=== PATIENT | female | born 1960 | race Caucasian/White ===

== ENCOUNTER → 2020-04-01 | Outpatient (CLI) | payer OTHER ==
[2020-04-01 12:09] LABS: HCT 49.6 % (34.0-46.0); HGB 15.7 gm/dL (11.4-16.0); MCH 31.2 pg (25.0-35.0); MCHC 31.7 g/dL (31.0-37.0); MCV 98.6 fL (80.0-100.0); Mean Platelet Volume 7.1; Platelet Count 254 k/uL (150-450); RBC 5.03 m/uL (3.80-5.40); RDW 12.8 % (11.5-15.5); WBC 7.5 k/uL (3.8-10.6)
[2020-04-01 12:13] LABS: Appearance,Urine Clear (Clear); Bilirubin,Urine Negative (Negative); Blood,Urine Negative (Negative); Color,Urine Light Yellow; Glucose,Urine (UA) Negative (Negative); Ketones,Urine Negative (Negative); Leukocyte Esterase,Urine Negative (Negative); Nitrite,Urine Negative (Negative); Protein,Urine Negative (Negative); Specific Gravity,Urine 1.011 (1.001-1.035); Urobilinogen,Urine <2.0 mg/dL (<2.0)
[2020-04-01 12:18] LABS: African American GFR (CKD) >90 (>60 ml/min/1.73 sqM); Anion Gap 10 mmol/L; Blood Urea Nitrogen 13 mg/dL (7-17); Calcium 9.5 mg/dL (8.4-10.2); Carbon Dioxide 26 mmol/L (22-30); Chloride 104 mmol/L (98-107); Glucose 76 mg/dL (74-99); Non-African American GFR(CKD) >90 (>60 ml/min/1.73 sqM); Potassium 4.4 mmol/L (3.5-5.1); Sodium 140 mmol/L (137-145)
[2020-04-01 12:27] LABS: Prothrombin Time 9.9 sec (9.0-12.0)
[2020-04-01 12:32] LABS: Partial Thromboplastin Time 19.1 sec (22.0-30.0)
--- NOTE | 2020-04-01 16:30 | XR ---
EXAMINATION TYPE: XR chest 2V DATE OF EXAM: 04/01/2020 COMPARISON: NONE HISTORY: Z01.818 TECHNIQUE: Frontal and lateral views of the chest are obtained. FINDINGS: There is no focal air space opacity, pleural effusion, or pneumothorax seen. The cardiac silhouette size is within normal limits. Aorta is dense. The osseous structures are intact, there is multilevel thoracic spondylosis. IMPRESSION: No acute cardiopulmonary process.
== END | disposition home or self-care (01) ==
LOC: LABPAT 09:40
PROVIDERS: ATTEND Orthopaedic Surgery Orthopaedic Surgery of the Spine
DX: Z01.818 Encounter for other preprocedural examination (principal); M48.02 Spinal stenosis, cervical region; Z01.812 Encounter for preprocedural laboratory examination
CPT/HCPCS: 71046; 80048; 81003; 85027; 85610; 85730; 87070; 93005

== ENCOUNTER 2020-04-08 07:44 | Inpatient (IN) | payer OTHER ==
[2020-04-03 11:46] VITALS: BMI 33.3
[~2020-04-08 07:44] MED LIST: LIDOCAINE 1% (10MG/ML) FOR IV START INTRADERMA PRN; ONDANSETRON 4 MG/2 ML VIAL IVP ONE; ceFAZolin 1,000 MG in SODIUM CHLORIDE 0.9% IRRIGATIO 1,000 ML IRRIGATION ONE; fentaNYL (PF) 50 MCG/ML 2 ML AMP IV PRN
[2020-04-08 08:48] LABS: Glucose,Whole Blood 85 mg/dL (75-99)
[2020-04-08] MEDS ORDERED: SCOPOLAMINE 1.5MG/72HR PATCH TRANSDERM ONE (08:50)
[2020-04-08] MEDS: LACTATED RINGERS 1,000 ML IV SCH (08:50)
[2020-04-08] MEDS ORDERED: ROCURONIUM 10 MG/ML (10 ML VIAL) IV ONE (09:52)
[2020-04-08] MEDS ORDERED: MIDAZOLAM 2 MG/2 ML VIAL ONE (09:52)
[2020-04-08] MEDS ORDERED: PROPOFOL 10 MG/ML 20 ML VIAL IV ONE (09:52)
[2020-04-08] MEDS ORDERED: SUCCINYLCHOLINE CHLORIDE VIAL 200 MG/10 ML VIAL IV ONE (09:52)
[2020-04-08] MEDS ORDERED: GLYCOPYRROLATE 0.2 MG/ML 2 ML VIAL ONE (09:52)
[2020-04-08] MEDS ORDERED: LIDOCAINE 1% INJ 10MG/ML (20 ML MDV) ONE (09:52)
[2020-04-08] MEDS ORDERED: ePHEDrine SULFATE/0.9% NACL/PF 50 MG/5 ML SYRINGE IV ONE (09:52)
[2020-04-08] MEDS ORDERED: PHENYLEPHRINE-0.9% NACL SYG 1 MG/10 ML SYRINGE ONE (09:52)
[2020-04-08] MEDS ORDERED: NEOSTIGMINE 1 MG/ML 10 ML VIAL ONE (09:52)
[2020-04-08] MEDS ORDERED: fentaNYL (PF) 50 MCG/ML 2 ML AMP ONE (09:52)
[2020-04-08] MEDS ORDERED: LIDOCAINE 0.5%-EPI 1:200,000 50 ML VIAL SQ ONE (10:38)
[2020-04-08] MEDS ORDERED: GELATIN SPONGE,ABSORB (LARGE) 1 EACH SPONGE MISCELLANE ONE (10:56)
[2020-04-08] MEDS ORDERED: THROMBIN (BOVINE) 5,000 UNIT VIAL MISCELLANE ONE (10:57)
[2020-04-08] MEDS ORDERED: LACTATED RINGERS 1,000 ML IV ONE (11:36)
--- NOTE | 2020-04-08 12:33 | FL ---
EXAMINATION TYPE: FL guidance operating room, XR lumbar spine 2 or 3V DATE OF EXAM: 04/08/2020 CLINICAL HISTORY: Low back pain. TECHNIQUE: Fluoroscopy. Lumbar spine 2 or 3 views. COMPARISON: None. FINDINGS: Fluoroscopic guidance was provided during lumbar fusion surgical procedure performed by Dr Dhiraj Baron. A total of 27 seconds of fluoroscopic time was utilized during the procedure and 2 spot shakir ges was acquired. 2 spot intraoperative images obtained show posterior interpedicular rods and screws along with metall ic disc material at L4-L5 level. Satisfactory alignment is seen on intraoperative images obtained. IMPRESSION: As Above.
[2020-04-08] MEDS ORDERED: BENZOCAINE/MENTHOL LOZENG 1 EACH LOZENGE MUCOUS MEM PRN (12:38)
[2020-04-08] MEDS ORDERED: HYDROcodone/APAP 5-325MG 1 EACH TAB PO PRN (12:38)
[2020-04-08] MEDS ORDERED: MAGNESIUM HYDROXIDE 2,400 MG/10 ML CUP PO PRN (12:38)
[2020-04-08] MEDS ORDERED: HYDROmorphone 0.5 MG/0.5 ML SYRINGE IVP PRN (12:38)
--- NOTE | 2020-04-08 12:51 | P.OP ---
Date of Procedure: 04/08/20 Preoperative Diagnosis: Spondylolisthesis L4 5, degenerative disc disease, spinal stenosis L4 5, lower extremity radiculopathy, low back pain Postoperative Diagnosis: Same Anesthesia: GETA Pathology: none sent Condition: stable Disposition: PACU Description of Procedure: DESCRIPTION OF PROCEDURE(S): BRIEF OPERATIVE NOTE Preoperative Diagnosis: Spondylolisthesis , spinal stenosis , lower extremity radiculopathy, lower extremity weakness, neurogenic claudication, low back pain, degenerative disc disease Postoperative Diagnosis: Same Procedure: Laminectomy and decompression L4 [address] navigation aided Minimally invasive Posterior lateral decompression and facet fusion L4 5 Minimally invasive Transforaminal lumbar interbody fusion for a 360 fusion L4 5 Discectomy for decompression L4 5 Placement of interbody graft L4 5 Use of computer navigation for fusion Local autogenous bone grafting Aspiration of bone marrow from the vertebral body pedicle of L4 Use of bone graft extenders Surgeon: Dr. Baron Segregator: Hay CARLISLE who is present throughout the entire the case persistence during positioning, dissection, exposure, visualization, and all crucial elements of the case as well as closure. Anesthesia: General anesthesia Estimated blood loss: Approximately 150 mL Complications: None apparent Components implanted: K2M minimally invasive Shaw pedicle screw system withscrews measuring 6.5 mm in diameter to rods one [place] interbody cage with 10 mL of osteo amp bio4 bone graft substitute and 30 mL of the BX bone fibers to supplement the local autogenous bone graft and bone marrow aspirate Disposition: To recovery room in good stable condition. OPERATIVE INDICATIONS The patient has had severe issues at their lower extremity in her lower back over the past several years with significant worsening over the past several months. Over the past few months the patient had pain at her back and her right lower extremity. The patient is having severe radicular symptoms at her right lower extremity with weakness. The patient is having significant pain in her back. They are unable to obtain any comfort. We did aggressive conservative treatment with medications therapy and interventional pain management however she was not having any relief. The patient also showed evidence of a listhesis with some dynamic instability at L4 5 with significant disc degeneration I correlated well with her pain. The patient has been through conservative treatment. We discussed various treatment options including surgery, and the patient wishes to proceed with surgery We discussed the risk, patient's alternatives and benefits of surgery including but not limited to, risk of bleeding risk of infection, risk of need for further surgery, risk of decreased, loss of motion, muscle function, malunion nonunion, hardware failure, nerve damage, paralysis, heart attack, blindness and . They understood issues with the current pandemic and the possibility of exposure. OPERATIVE SUMMARY After discussing all the risks, patient alternatives and benefits at length, the patient elected to proceed with surgical intervention, signed informed consent, and presented for their procedure. The patient was seen and examined in the preoperative holding area and the surgical site was marked. The patient was given antibiotics and brought to the operating room. The patient was sedated and intubated by anesthesia in standard fashion. The patient was positioned on to the operating room table in a prone position on the appropriate frame which was well-padded and well molded. We were careful to pad any bony prominences and pressure points. We were careful to maintain the patient's cervical spine and good neutral alignment and position throughout. The patient was prepped and draped in a normal standard fashion. An appropriate timeout and keystone protocol performed. We were able to proceed with the surgery. The local wound area was infiltrated with local anesthetic. Over the right iliac crest I was able to make small stab incisions and establish a guidepin screw fixation to the iliac crest 2. I was able place the computer referencing device over the guidepins to establish an appropriate reference point for the [employer] CT navigation. We then were able to place patient in an appropriate drape and do a navigation spin for visualization and 3-D reconstruction of the lumbar spine. I was able utilize C-arm guidance and navigation to establish appropriate position over the pedicles bilaterally at the appropriate levels . With the appropriate levels confirmed was able to make small stab incisions over the appropriate pedicle sites bilaterally. Utilizing the computer navigation device I was able to establish bony landmarks at the right iliac crest for a bony reference point for the navigation device. I was able to establish a Jamshidi needle over the lateral aspect of the pedicle and advanced the trocar into the pedicle being careful not to breech superiorly inferiorly medially or laterally using computer navigation device. Position was confirmed regularly with AP and lateral images on C-arm and with the computer navigation device at the appropriate levels bilaterally. I was able to establish the trocar into the pedicle appropriately into the posterior aspect of the vertebral body bilaterally at the appropriate levels of L4 5 bilaterally. This was done at each of the pedicle positions and each of the vertebrae. At the superior vertebrae I was able to take approximately 25 mL of bone aspiration for use later in the case to supplement the allograft and autograft bone. I was able place the guidewire into the trocar and into the vertebral body appropriately under C-arm guidance. Dissection was taken down over the wire to the appropriate starting position for the screw placed. The appropriate length screw was chosen, threaded over the guidewire and screwed appropriately into the pedicle and vertebral body under C-arm guidance in excellent alignment and position with good bony purchase. This is done at each of the screw sites at the appropriate levels at L4 and 5.. With the screws intact I extended the incision to connect the screw hole sites on the most symptomatic side on the right at L4 5. I dissected down to establish access over the pars and lamina to the base of the spinous process. I was able to expose the facet joint. The capsule the facet was taken down and showed some facet arthrosis at the joint. I was able to use a combination of curettes and Kerrison rongeurs and a high-speed drill to take down the facet joint and do a facetectomy. I was able get excellent foraminal decompression and central decompression with undermining across midline to perform a laminectomy centrally and contralaterally. As able get good central decompression. The ligamentum flavum was taken down to further decompress centrally and at bilateral neural foramen. I was able to expose the disc space and visualize the traversing nerve root. Note was made of some disc protrusion and disc herniation that was abutting the traversing nerve root at the level causing further compression of the nerve root. I was able to establish a annulotomy at the appropriate level protecting soft tissue and neural structures. Note was made of some disc desiccation at the disc. I performed a complete discectomy with accommodation of curettes and rasps and scrapers. I was able get good endplate preparation at the disc space. I sized for the appropriate size interbody spacer protecting the soft tissue and neural structures. The wound was copiously irrigated and suctioned dry. There is no evidence of any dural tear or leak. I was able to pack the disc space with local autogenous bone graft as well as a small amount of bone graft which was also placed into the interbody cage itself. Protecting the soft tissue structures and neural structures I was able place the interbody cage in good alignment and good position with good fit and fill at the interbody space. Position was confirmed with C-arm guidance. Good hemostasis maintained. There is no evidence of any dural tear or leak. The wound was irrigated and suctioned dry. With the hardware intact, intraoperative C-arm imaging was again taken which showed good alignment and position of the hardware at the appropriate levels. We were then able to measure, contour and place the rods and appropriate hardware bilaterally. I was able to place capcrews, tighten them down, and torque them with the torque screwdriver appropriately. With this intact I was able to place the local autogenous bone graft with additional bone graft enhancer as necessary into the posterior lateral gutters over the decorticated transverse processes and facet joints on the contralateral side. The remainder of the bone graft was placed over the facet joint on the contralateral side after taking down the facet joint capsule. With the bone graft intact, a stable construct, and good decompression at the appropriate levels, we were able to proceed with closure. Good hemostasis was maintained. There is no evidence of dural tear or leak. The fascia was closed for a watertight closure. he subcuticular tissue was closed with absorbable suture. The wound was cleaned and dried and dressed with the appropriate dressing. The drapes were broken down. The patient was gently rolled back onto their hospital bed being careful to maintain their cervical spine and good neutral alignment and position. They were woken up by anesthesia, extubated, and brought to the recovery room in good stable condition. The patient will be admitted to the hospital for appropriate postoperative care, medical management and monitoring. We will continue to follow them closely about the postoperative course.
[2020-04-08] MEDS ORDERED: HYDROmorphone 1 MG/ML 1 ML SYRINGE IVP ONE (13:06)
[2020-04-08] MEDS: SODIUM CHLORIDE 0.9% 1,000 ML IV SCH (15:06)
[2020-04-08] MEDS: HYDROmorphone 1 MG/ML 1 ML SYRINGE IVP PRN ×2 (17:44→21:45)
[2020-04-08] MEDS: ONDANSETRON 4 MG/2 ML VIAL IVP PRN (18:03)
--- NOTE | 2020-04-08 23:13 | P.CONS ---
History of Present Illness - Reason for Consult Consult date: 04/08/20 Medical management Requesting physician: Vera Baron - Chief Complaint Lumbar surgery - History of Present Illness History of presenting complaint: This is a pleasant 59-year-old patient of Dr. Boateng. Chronic stable medical conditions include asthma, GERD, irritable bowel syndrome, lactose intolerance, kidney stones, anxiety, osteoarthritis. Patient's had chronic low back pain progressive over years. Has continued to get worse. Failed conservative management. Pain radiates down the leg. Patient underwent laminectomy decompression of L4-L5 area. And discectomy. Postprocedure laying in bed. Pain is controlled. No nausea vomiting. Patient has no underlying bowel or urine symptoms. Pugh catheter. Review of systems: GEN.: Tired EYES: None HEENT: None NECK: None RESPIRATORY: None CARDIOVASCULAR: None GASTROINTESTINAL: None GENITOURINARY: None MUSCULOSKELETAL: [As above and other joint pains LYMPHATICS: None HEMATOLOGICAL: None PSYCHIATRY: None NEUROLOGICAL: Patient had referred pain down the legs preoperatively Past medical history to include: Asthma, GERD, irritable bowel syndrome, lactose intolerance, kidney stones, anxiety, osteoarthritis Social history: Does not smoke or drink alcohol. . Physical examination: VITAL SIGNS: 97.5, 91, 20, 150/39, 96% room air GENERAL: BMI 32.5, laying in bed, awake. EYES: Pupils equal. Conjunctiva normal. HEENT: External appearance of nose and ears normal, oral cavity grossly normal. NECK: JVD not raised; masses not palpable. HEART: First and second heart sounds are normal; no edema. LUNGS: Respiratory rate normal; clear to auscultation. ABDOMEN: Soft, nontender, liver spleen not palpable, no masses palpable. PSYCH: Alert and oriented x3; mood and affect normal Muscular skeletal: Dressing over the surgical site. NEUROLOGICAL: Cranial nerves grossly intact; no facial asymmetry, power and sensation grossly intact. LYMPHATICS: No lymph nodes palpable in the axilla and neck INVESTIGATIONS, reviewed in the clinical context: From March 26 11/07/2019: White count 7.5 hemoglobin 15.7 platelets 254 potassium 4.4 creatinine 0.65 Assessment: -L4-L5 spondylolisthesis, DJD, spinal stenosis at L4-L5 with lower extremity radiculopathy followed by laminectomy decompression and discectomy and placement of interbody graft. -Intermittent asthma -GERD -Irritable bowel syndrome -Chronic lactose intolerance -Anxiety not otherwise specified -Primary osteoarthritis -Hypothyroid Plan: Home medications resumed. Has cut Venodyne boots in place. Pain control in place. Diet as tolerated. Care was discussed with the patient question also. Thank you Dr. Chan Past Medical History Past Medical History: Asthma, GERD/Reflux, Musculoskeletal Disorder, Osteoarthritis (OA), Thyroid Disorder Additional Past Medical History / Comment(s): IBS, frequent diarrhea, seasonal allergies, lactose intolerance, hypoglycemia, hx. heart murmur, anemia, kidney stones, past hx. elevated liver enzymes, gout, back pain that goes down both inner & outer on right leg, blanca pain on inner legs-worse on right History of Any Multi-Drug Resistant Organisms: None Reported Past Surgical History: Cholecystectomy, Hysterectomy, Orthopedic Surgery, Uterine Ablation Additional Past Surgical History / Comment(s): right rotator cuff repair December, blanca CTS, D & C's, epidural pain procedures Past Anesthesia/Blood Transfusion Reactions: Motion Sickness, Postoperative Nausea & Vomiting (PONV) Additional Past Anesthesia/Blood Transfusion Reaction / Comm: wakes up w/headaches after anesthesia, no problem w/blood transfusion in past Past Psychological History: Anxiety Smoking Status: Never smoker Past Alcohol Use History: None Reported Past Drug Use History: None Reported - Past Family History Father Family Medical History: Cancer Additional Family Medical History / Comment(s): pancreatic Sister(s) Family Medical History: Cancer Medications and Allergies Home Medications Medication Instructions Recorded Confirmed Type Acetaminophen Tab [Tylenol] 650 mg PO Q4H PRN 04/03/20 04/03/20 History Calcium Carb/Magnesium Hydrox 1 each PO DIRECTED PRN 04/03/20 04/03/20 History [Rolaids Chewable Tablet] Cyanocobalamin (Vitamin B-12) 1,000 mcg PO DAILY 04/03/20 04/03/20 History [Vitamin B-12] Ibuprofen [Motrin Ib] 200 mg PO Q6H PRN 04/03/20 04/03/20 History Levothyroxine Sodium [Synthroid] 88 mcg PO DAILY 04/03/20 04/03/20 History Loperamide [Imodium] 2 mg PO QID PRN 04/03/20 04/03/20 History Multivitamins, Thera [Multivitamin 1 tab PO DAILY 04/03/20 04/03/20 History (formulary)] Omeprazole Magnesium [PriLOSEC OTC] 20 mg PO BID PRN 04/03/20 04/08/20 History diphenhydrAMINE [Benadryl] 12.5 mg PO BID PRN 04/03/20 04/03/20 History Albuterol Nebulized (Conc) INHALATION DIRECTED PRN 04/08/20 History [Ventolin Nebulized (Conc)] Allergies Allergy/AdvReac Type Severity Reaction Status Date / Time povidone-iodine Allergy Rash/Hives Verified 04/03/20 10:47 [From Betadine] soap [From Betadine] Allergy Rash/Hives Verified 04/03/20 10:47 morphine AdvReac Nausea & Verified 04/03/20 10:47 Vomiting Sulfa (Sulfonamide AdvReac GI Verified 04/03/20 10:47 Antibiotics) upset,diarrhea narcotics AdvReac IBS flare Uncoded 04/03/20 10:49 up steroids AdvReac headaches,GI Uncoded 04/03/20 10:47 upset Physical Exam Vitals: Vital Signs Temp Pulse Pulse Pulse Pulse Resp BP 04/08/20 20:41 97.5 F L 91 20 04/08/20 16:48 72 04/08/20 16:33 74 04/08/20 16:18 74 04/08/20 16:03 74 04/08/20 15:48 68 04/08/20 15:33 68 04/08/20 15:18 70 04/08/20 14:48 66 04/08/20 14:33 69 04/08/20 14:20 71 04/08/20 13:42 67 16 04/08/20 13:27 67 16 04/08/20 13:12 70 16 04/08/20 12:57 79 16 04/08/20 12:42 97.2 F L 98 16 04/08/20 08:18 76 20 135/98 04/08/20 08:14 97.2 F L BP Pulse Ox 04/08/20 20:41 150/79 96 04/08/20 16:48 135/81 97 04/08/20 16:33 133/82 96 04/08/20 16:18 143/71 99 04/08/20 16:03 157/70 96 04/08/20 15:48 116/78 95 04/08/20 15:33 113/77 95 04/08/20 15:18 122/76 97 04/08/20 14:48 136/76 96 04/08/20 14:33 137/77 96 04/08/20 14:20 116/59 96 04/08/20 13:42 123/58 93 L 04/08/20 13:27 126/60 93 L 04/08/20 13:12 154/74 92 L 04/08/20 12:57 143/68 98 04/08/20 12:42 150/73 98 04/08/20 08:18 98 04/08/20 08:14 Intake and Output 04/08/20 04/08/20 04/09/20 14:59 22:59 06:59 Intake Total 1651 225 Output Total 370 300 Balance 1281 -75 Intake: IV 1651 Intake, IV Titration 225 Amount Sodium Chloride 0.9% 1, 225 000 ml @ 75 mls/hr IV . [id number] [facility] Rx#:[id number] Output: Urine 220 300 Estimated Blood Loss 150 Other: Voiding Method Indwelling Catheter Weight 86 kg
[2020-04-09] MEDS: HYDROmorphone 1 MG/ML 1 ML SYRINGE IVP PRN ×4 (01:27→19:18)
[2020-04-09] MEDS: SODIUM CHLORIDE 0.9% 1,000 ML IV SCH ×2 (05:37→15:38)
[2020-04-09] MEDS ORDERED: diphenhydrAMINE ELIXIR 25 MG/10 ML CUP PO PRN (07:11)
[2020-04-09] MEDS ORDERED: LOPERAMIDE 2 MG CAP PO PRN (07:11)
[2020-04-09] MEDS ORDERED: PANTOPRAZOLE 40 MG TABLET PO PRN (07:11)
[2020-04-09] MEDS ORDERED: CALCIUM CARB PO PRN (07:11)
[2020-04-09] MEDS ORDERED: [UNRECOGNIZED DRUG - OTHER] PO PRN (07:11)
[2020-04-09] MEDS ORDERED: MAGNESIUM HYDROX PO PRN (07:11)
[2020-04-09] MEDS: LEVOTHYROXINE 88 MCG TAB PO SCH (07:21)
[2020-04-09] MEDS: ONDANSETRON 4 MG/2 ML VIAL IVP PRN (07:22)
[2020-04-09 07:55] LABS: Basophils % (A) 0 %; Eosinophils # (A) 0.1 k/uL (0-0.7); Eosinophils % (A) 1 %; HCT 39.3 % (34.0-46.0); HGB 12.8 gm/dL (11.4-16.0); Lymphocytes # (A) 1.5 k/uL (1.0-4.8); Lymphocytes % (A) 14 %; MCHC 32.5 g/dL (31.0-37.0); MCV 98.5 fL (80.0-100.0); Mean Platelet Volume 8.8; Monocytes # (A) 0.9 k/uL (0-1.0); Monocytes % (A) 8 %; Neutrophils # (A) 8.5 k/uL (1.3-7.7); Neutrophils % (A) 76 %; Platelet Count 186 k/uL (150-450); RDW 12.9 % (11.5-15.5); WBC 11.2 k/uL (3.8-10.6)
--- NOTE | 2020-04-09 08:53 | P.PN ---
Progress Note - Text Progress Note Date: 04/09/20 Orthopedic Spine History of present illness: Patient is a pleasant 59-year-old who is seen and examined at the bedside following posterior lateral decompression and fusion performed yesterday. Patient states they are doing ok postsurgically. She is not experiencing any lower extremity weakness or radiculopathy bilaterally. Her pain is most significant at her lumbar spine. Currently does not complain of nausea, vomiting, fever, or chills. Patient states pain has been adequately controlled. Patient is eating without difficulty but does not have much of an appetite. Her Pugh catheter remains intact. She has not been out of bed postoperatively but plans to work with physical therapy today. Physical Exam Lumbar Fusion: Status post surgical day number 1 Patient is awake, alert, and oriented 3 Vital signs stable Good chest excursion with deep inspiration and expiration Dorsiflexion, plantarflexion, and extensor hallucis longus positive sustained bilaterally No signs or symptoms of DVT; no calf pain; pneumatic cuffs intact bilateral lower extremities Dressing is dry and intact with a spot of dried blood over the left incision site; no erythema, purulence, or signs of infection Hemovac drain well secure Neurovascularly intact bilaterally lower extremities Assessment: L4-5 minimally invasive posterior lateral decompression and fusion with transforaminal lumbar interbody fusion Low back pain Lumbar spinal stenosis with neurogenic claudication Lower extremity weakness with radiculopathy Hypertension Hypothyroidism Plan: 1. Ambulate as tolerated; work with Physical Therapy to increase mobilization 2. Continue pain control with IV and oral medications 3. Dressings to remain intact; she may shower with dressing is intact 4. Medical management can continue to manage patient for patient's other medical issues 5. We will continue to follow the patient closely 6. Patient can follow-up with Hay Shah PA-C or Dr. Wyatt Baron at [facility] in 2-3 weeks following discharge
[2020-04-09 09:09] LABS: African American GFR (CKD) 108.4 (60.0-200.0); Anion Gap 10.5 mmol/L (4.00-12.00); BUN/Creat Ratio 11.43 Ratio (12.00-20.00); Calcium 8.4 mg/dL (8.7-10.3); Carbon Dioxide 22.5 mmol/L (21.6-31.8); Non-African American GFR(CKD) 93.5 (60.0-200.0); Potassium 4.7 mmol/L (3.5-5.5)
[2020-04-09] MEDS: LACTATED RINGERS 1,000 ML IV SCH (09:30)
[2020-04-09] MEDS: SENNOSIDES-DOCUSATE SODIUM 1 EACH TAB PO SCH (09:36)
[2020-04-09] MEDS: MULTIVITAMINS, THERA 1 EACH TAB PO SCH (09:36)
[2020-04-09] MEDS: CYANOCOBALAMIN 500 MCG TAB PO SCH (09:36)
--- NOTE | 2020-04-09 16:38 | P.PN ---
Progress Note - Text Progress Note Date: 04/09/20 - Chief Complaint Lumbar surgery - History of Present Illness History of presenting complaint: This is a pleasant 59-year-old patient of Dr. Boateng. Chronic stable medical conditions include asthma, GERD, irritable bowel syndrome, lactose intolerance, kidney stones, anxiety, osteoarthritis. Patient's had chronic low back pain progressive over years. Has continued to get worse. Failed conservative management. Pain radiates down the leg. Patient underwent laminectomy decompression of L4-L5 area. And discectomy. Postprocedure laying in bed. Pain is controlled. No nausea vomiting. Patient has no underlying bowel or urine symptoms. Pugh catheter. Today-did walk to the bathroom and back to the chair. Activity increase her lower back pain. Did tolerate some diet. No nausea vomiting. Review of systems: Was done for constitutional, cardiovascular, GI, pulmonary. relevant finding as above Active Medications Acetaminophen (Acetaminophen Tab 325 Mg Tab) 650 mg PO Q4H PRN PRN Reason: Pain Hydrocodone Bitart/Acetaminophen (Hydrocodone/Apap 5-325mg 1 Each Tab) 1 each PO Q4HR PRN PRN Reason: Moderate Pain Benzocaine/Menthol (Benzocaine/Menthol Lozeng 1 Each Lozenge) 1 each MUCOUS MEM Q4HR PRN PRN Reason: Sore Throat Cyanocobalamin (Cyanocobalamin 500 Mcg Tab) 1,000 mcg PO DAILY [facility] Last Admin: 04/09/20 09:36 Dose: 1,000 mcg Documented by: Diphenhydramine HCl (Diphenhydramine Elixir 25 Mg/10 Ml Cup) 12.5 mg PO BID PRN PRN Reason: allergies Hydromorphone HCl (Hydromorphone 0.5 Mg/0.5 Ml Syringe) 0.5 mg IVP Q4HR PRN PRN Reason: Pain Hydromorphone HCl (Hydromorphone 1 Mg/Ml 1 Ml Syringe) 1 mg IVP Q4HR PRN PRN Reason: Pain Last Admin: 04/09/20 13:26 Dose: 1 mg Documented by: Lactated Ringer's (Lactated Ringers) 1,000 mls @ 20 mls/hr IV .Q24H [facility] Last Admin: 04/09/20 09:30 Dose: Not Given Documented by: Sodium Chloride (Saline 0.9%) 1,000 mls @ 75 mls/hr IV .[id number] [facility] Last Admin: 04/09/20 15:38 Dose: Not Given Documented by: Levothyroxine Sodium (Levothyroxine 88 Mcg Tab) 88 mcg PO DAILY@0630 [facility] Last Admin: 04/09/20 07:21 Dose: 88 mcg Documented by: Lidocaine HCl (Lidocaine 1% (10mg/Ml) For Iv Start) 0.1 ml INTRADERMA PER PROTOCOL PRN PRN Reason: IV Start Last Admin: 04/08/20 08:50 Dose: 0.1 ml Documented by: Loperamide HCl (Loperamide 2 Mg Cap) 2 mg PO QID PRN PRN Reason: Diarrhea Magnesium Hydroxide (Magnesium Hydroxide 2,400 Mg/10 Ml Cup) 2,400 mg PO DAILY PRN PRN Reason: Constipation Multivitamins (Multivitamins, Thera 1 Each Tab) 1 each PO DAILY [facility] Last Admin: 04/09/20 09:36 Dose: 1 each Documented by: Ondansetron HCl (Ondansetron 4 Mg/2 Ml Vial) 4 mg IVP Q6HR PRN PRN Reason: Nausea Last Admin: 04/09/20 07:22 Dose: 4 mg Documented by: Pantoprazole Sodium (Pantoprazole 40 Mg Tablet) 40 mg PO DAILY PRN PRN Reason: Heartburn Senna/Docusate Sodium (Sennosides-Docusate Sodium 1 Each Tab) 1 each PO DAILY [facility] Last Admin: 04/09/20 09:36 Dose: 1 each Documented by: Physical examination: VITAL SIGNS: 98.2, 83, 16, 117/69, 94% room air GENERAL: Sitting up in a chair, awake EYES: Pupils equal. Conjunctiva normal. NECK: JVD not raised; masses not palpable. HEART: First and second heart sounds are normal; no edema. LUNGS: Respiratory rate normal; clear to auscultation. ABDOMEN: Soft, nontender, liver spleen not palpable, no masses palpable. PSYCH: Alert and oriented x3; mood and affect normal Muscular skeletal: Dressing over the surgical site. NEUROLOGICAL: Cranial nerves grossly intact; no facial asymmetry, power and sensation grossly intact. INVESTIGATIONS, reviewed in the clinical context: White count 11.2 hemoglobin 12.8 potassium 4.7 creatinine 0.7 From March 26 11/07/2019: White count 7.5 hemoglobin 15.7 platelets 254 potassium 4.4 creatinine 0.65 Assessment: -L4-L5 spondylolisthesis, DJD, spinal stenosis at L4-L5 with lower extremity radiculopathy followed by laminectomy decompression and discectomy and placement of interbody graft. -Intermittent asthma -GERD -Irritable bowel syndrome -Chronic lactose intolerance -Anxiety not otherwise specified -Primary osteoarthritis -Hypothyroid Plan: Continue current medication treatment plan. Discussed with the patient. Increase activity as tolerated. Thank you Dr. Baron
[2020-04-09] MEDS: ACETAMINOPHEN TAB 325 MG TAB PO PRN (20:28)
[2020-04-10] MEDS: HYDROmorphone 1 MG/ML 1 ML SYRINGE IVP PRN ×2 (01:19→08:29)
[2020-04-10] MEDS: LACTATED RINGERS 1,000 ML IV SCH (06:01)
[2020-04-10] MEDS: LEVOTHYROXINE 88 MCG TAB PO SCH (06:02)
[2020-04-10] MEDS: SODIUM CHLORIDE 0.9% 1,000 ML IV SCH ×2 (06:03→19:29)
[2020-04-10] MEDS: CYANOCOBALAMIN 500 MCG TAB PO SCH (08:30)
[2020-04-10] MEDS: MULTIVITAMINS, THERA 1 EACH TAB PO SCH (08:30)
[2020-04-10] MEDS: SENNOSIDES-DOCUSATE SODIUM 1 EACH TAB PO SCH (08:30)
[2020-04-10 12:00] LABS: Basophils % (A) 0 %; Eosinophils # (A) 0.1 k/uL (0-0.7); Eosinophils % (A) 1 %; HCT 39.9 % (34.0-46.0); HGB 12.7 gm/dL (11.4-16.0); Lymphocytes # (A) 1.3 k/uL (1.0-4.8); Lymphocytes % (A) 12 %; MCHC 31.8 g/dL (31.0-37.0); MCV 100.5 fL (80.0-100.0); Mean Platelet Volume 6.9; Monocytes # (A) 0.7 k/uL (0-1.0); Monocytes % (A) 6 %; Neutrophils # (A) 8.4 k/uL (1.3-7.7); Neutrophils % (A) 79 %; Platelet Count 189 k/uL (150-450); RBC 3.97 m/uL (3.80-5.40); RDW 12.8 % (11.5-15.5); WBC 10.6 k/uL (3.8-10.6)
[2020-04-10] MEDS: ACETAMINOPHEN TAB 325 MG TAB PO PRN ×2 (15:47→19:58)
--- NOTE | 2020-04-10 16:16 | P.PN ---
Progress Note - Text Progress Note Date: 04/10/20 Orthopedic Spine History of present illness: Patient is a pleasant 59-year-old who is seen and examined at the bedside following posterior lateral decompression and fusion performed yesterday. Patient states they are doing ok postsurgically. He is currently sitting in a bedside chair. She has been able to perform some ambulation with physical therapy. She does continue to have pain at the surgical sites of her lumbar spine. She is not experiencing any lower extremity weakness bilaterally. She states today she is experiencing some pain from the posterior knee through the calf to the ankle bilaterally greater on the right than the left. Her pain is most significant at her lumbar spine. Currently does not complain of nausea, vomiting, fever, or chills. Patient states pain has been adequately controlled. She has not been taking any narcotic oral medications. She does continue with Dilaudid IV. Patient is eating without difficulty but does not have much of an appetite. Physical Exam Lumbar Fusion: Status post surgical day number 2 Patient is awake, alert, and oriented 3 Vital signs stable Good chest excursion with deep inspiration and expiration Dorsiflexion, plantarflexion, and extensor hallucis longus positive sustained bilaterally No signs or symptoms of DVT; no calf pain; pneumatic cuffs intact bilateral lower extremities No significant pain on palpation of the calves bilaterally; negative Sylvia's sign bilaterally Dressing is dry and intact with a spot of dried blood over the left incision site; no erythema, purulence, or signs of infection Hemovac drain well secure Neurovascularly intact bilaterally lower extremities Assessment: L4-5 minimally invasive posterior lateral decompression and fusion with transforaminal lumbar interbody fusion Low back pain Lumbar spinal stenosis with neurogenic claudication Lower extremity weakness with radiculopathy Hypertension Hypothyroidism Plan: 1. Ambulate as tolerated; work with Physical Therapy to increase mobilization 2. Continue pain control with IV and oral medications; we discussed we will start to wean off of IV Dilaudid and will try to control her pain with Tylenol 650 mg 1 tablet every 4 hours as needed for pain. Patient has significant difficulty with Tylenol #3, Ultram, and Orient. We'll plan to avoid these medications. 3. Dressings to remain intact; she may shower with dressing is intact 4. Medical management can continue to manage patient for patient's other medical issues 5. We will continue to follow the patient closely 6. Patient can follow-up with Hay Shah PA-C or Dr. Wyatt Baron at [facility] in 2-3 weeks following discharge
[2020-04-10 20:05] VITALS: RESP 18
--- NOTE | 2020-04-10 23:49 | P.PN ---
Progress Note - Text Progress Note Date: 04/10/20 - Chief Complaint Lumbar surgery - History of Present Illness History of presenting complaint: This is a pleasant 59-year-old patient of Dr. Boateng. Chronic stable medical conditions include asthma, GERD, irritable bowel syndrome, lactose intolerance, kidney stones, anxiety, osteoarthritis. Patient's had chronic low back pain progressive over years. Has continued to get worse. Failed conservative management. Pain radiates down the leg. Patient underwent laminectomy decompression of L4-L5 area. And discectomy. Postprocedure laying in bed. Pain is controlled. No nausea vomiting. Patient has no underlying bowel or urine symptoms. Pugh catheter. Today-activity improving. Oral intake improving. Pain still present. Does radiate down the right leg. Up in a chair. Review of systems: Was done for constitutional, cardiovascular, GI, pulmonary. relevant finding as above Active Medications Acetaminophen (Acetaminophen Tab 325 Mg Tab) 650 mg PO Q4H PRN PRN Reason: Pain Last Admin: 04/10/20 19:58 Dose: 650 mg Documented by: Hydrocodone Bitart/Acetaminophen (Hydrocodone/Apap 5-325mg 1 Each Tab) 1 each PO Q4HR PRN PRN Reason: Moderate Pain Benzocaine/Menthol (Benzocaine/Menthol Lozeng 1 Each Lozenge) 1 each MUCOUS MEM Q4HR PRN PRN Reason: Sore Throat Cyanocobalamin (Cyanocobalamin 500 Mcg Tab) 1,000 mcg PO DAILY [facility] Last Admin: 04/10/20 08:30 Dose: Not Given Documented by: Diphenhydramine HCl (Diphenhydramine Elixir 25 Mg/10 Ml Cup) 12.5 mg PO BID PRN PRN Reason: allergies Hydromorphone HCl (Hydromorphone 0.5 Mg/0.5 Ml Syringe) 0.5 mg IVP Q4HR PRN PRN Reason: Pain Hydromorphone HCl (Hydromorphone 1 Mg/Ml 1 Ml Syringe) 1 mg IVP Q4HR PRN PRN Reason: Pain Last Admin: 04/10/20 08:29 Dose: 1 mg Documented by: Lactated Ringer's (Lactated Ringers) 1,000 mls @ 20 mls/hr IV .Q24H [facility] Last Admin: 04/10/20 06:01 Dose: Not Given Documented by: Sodium Chloride (Saline 0.9%) 1,000 mls @ 75 mls/hr IV .[id number] [facility] Last Admin: 04/10/20 19:29 Dose: Not Given Documented by: Levothyroxine Sodium (Levothyroxine 88 Mcg Tab) 88 mcg PO DAILY@0630 [facility] Last Admin: 04/10/20 06:02 Dose: 88 mcg Documented by: Lidocaine HCl (Lidocaine 1% (10mg/Ml) For Iv Start) 0.1 ml INTRADERMA PER PROTOCOL PRN PRN Reason: IV Start Last Admin: 04/08/20 08:50 Dose: 0.1 ml Documented by: Loperamide HCl (Loperamide 2 Mg Cap) 2 mg PO QID PRN PRN Reason: Diarrhea Magnesium Hydroxide (Magnesium Hydroxide 2,400 Mg/10 Ml Cup) 2,400 mg PO DAILY PRN PRN Reason: Constipation Multivitamins (Multivitamins, Thera 1 Each Tab) 1 each PO DAILY [facility] Last Admin: 04/10/20 08:30 Dose: Not Given Documented by: Ondansetron HCl (Ondansetron 4 Mg/2 Ml Vial) 4 mg IVP Q6HR PRN PRN Reason: Nausea Last Admin: 04/09/20 07:22 Dose: 4 mg Documented by: Pantoprazole Sodium (Pantoprazole 40 Mg Tablet) 40 mg PO DAILY PRN PRN Reason: Heartburn Senna/Docusate Sodium (Sennosides-Docusate Sodium 1 Each Tab) 1 each PO DAILY [facility] Last Admin: 04/10/20 08:30 Dose: 1 each Documented by: Physical examination: VITAL SIGNS: 98.9, 89, 18, 112 x 73, 96% room air GENERAL: Sitting up in a chair, awake EYES: Pupils equal. Conjunctiva normal. NECK: JVD not raised; masses not palpable. HEART: First and second heart sounds are normal; no edema. LUNGS: Respiratory rate normal; clear to auscultation. ABDOMEN: Soft, nontender, liver spleen not palpable, no masses palpable. PSYCH: Alert and oriented x3; mood and affect normal Muscular skeletal: Dressing over the surgical site. INVESTIGATIONS, reviewed in the clinical context: White count 10.6 hemoglobin 12.7 Previous testing White count 11.2 hemoglobin 12.8 potassium 4.7 creatinine 0.7 From March 26 11/07/2019: White count 7.5 hemoglobin 15.7 platelets 254 potassium 4.4 creatinine 0.65 Assessment: -L4-L5 spondylolisthesis, DJD, spinal stenosis at L4-L5 with lower extremity radiculopathy followed by laminectomy decompression and discectomy and placement of interbody graft. -Intermittent asthma -GERD -Irritable bowel syndrome -Chronic lactose intolerance -Anxiety not otherwise specified -Primary osteoarthritis -Hypothyroid Plan: Patient encouraged to increase activity as tolerated. Other medications to con tinue. Thank you Dr. Baron
[2020-04-11] MEDS: ACETAMINOPHEN TAB 325 MG TAB PO PRN ×2 (02:41→08:07)
[2020-04-11] MEDS: LACTATED RINGERS 1,000 ML IV SCH (06:27)
[2020-04-11] MEDS: LEVOTHYROXINE 88 MCG TAB PO SCH (06:28)
[2020-04-11] MEDS: SODIUM CHLORIDE 0.9% 1,000 ML IV SCH (07:52)
[2020-04-11 08:43] VITALS: BP 123/82; PULSE 72; TEMP 98.5
[2020-04-11] MEDS: CYANOCOBALAMIN 500 MCG TAB PO SCH (09:05)
[2020-04-11] MEDS: MULTIVITAMINS, THERA 1 EACH TAB PO SCH (09:06)
[2020-04-11] MEDS: SENNOSIDES-DOCUSATE SODIUM 1 EACH TAB PO SCH (09:06)
--- NOTE | 2020-04-11 10:00 | P.DS ---
Providers Date of admission: 04/10/20 13:14 Attending physician: Vera Baron Consults: 04/08/20 12:38 Consult Physician Routine Consulting Provider: Saeid Brennan Consult Reason/Comments: medical management Do you want consulting provider notified?: Yes Primary care physician: [facility] Course: The patient presented on the day of admission as per their operative note. She is undergone minimally invasive decompression and fusion at her lumbar spine and is making progress. She essentially refuses to take oral pain pills and has just been taking Tylenol. She has also been taking some IV Dilaudid which does not give her any significant problems. She has been able to wean down off of the IV medications and is taking oral Tylenol. She is mobile around her room and voiding freely. She had a bowel movement this morning. She's walking independently with her walker Physical Exam The incision site is clean dry and intact. There is no erythema no drainage. There is no purulence no evidence of infection. Abdomen soft and nontender. Chest has good excursion with deep inspiration and expiration. The patient has active and passive range of motion intact at the upper and lower extremities. There is no acute change in neurologic status. She has sustained a slash and plantar flexion and EHL intact. Calves and thighs are soft and nontender. Hospital Course Postoperative day #3 status post minimally invasive decompression and fusion her spine for her spinal stenosis with spondylolisthesis and lower extremity radiculopathy improving appropriately. The patient has been making good progress postoperatively. They have completed the prophylactic antibiotics without any signs or symptoms of infection. The patient has been able to advance their diet, and is tolerating diet adequately. The pain was initially controlled with IV medications and is now controlled appropriately with just Tylenol oral medications. She is declining taking anything stronger than the oral Tylenol. The patient has been able to increase their mobilization. I think that she needs a walker for home use. The patient has progressed appropriately. I think they are in good stable condi tion for discharge today. They will be sent home with appropriate prescriptions. I answered their questions to the best of my ability in a language that they can understand and they are agreeable with the plan. They will follow up as directed in approximately 2 weeks or sooner if she is having problems. Patient Condition at Discharge: Good Plan - Discharge Summary Discharge Rx Participant: No New Discharge Prescriptions: New HYDROcodone/APAP 5-325MG [[place] 5] 1 each PO Q6HR PRN #28 tab PRN Reason: Pain No Action Ibuprofen [Motrin Ib] 200 mg PO Q6H PRN PRN Reason: Pain Acetaminophen Tab [Tylenol] 650 mg PO Q4H PRN PRN Reason: Pain diphenhydrAMINE [Benadryl] 12.5 mg PO BID PRN PRN Reason: allergies Multivitamins, Thera [Multivitamin (formulary)] 1 tab PO DAILY Levothyroxine Sodium [Synthroid] 88 mcg PO DAILY Loperamide [Imodium] 2 mg PO QID PRN PRN Reason: Diarrhea Omeprazole Magnesium [PriLOSEC OTC] 20 mg PO BID PRN PRN Reason: Heartburn Cyanocobalamin (Vitamin B-12) [Vitamin B-12] 1,000 mcg PO DAILY Calcium Carb/Magnesium Hydrox [Rolaids Chewable Tablet] 1 each PO DIRECTED PRN PRN Reason: Heartburn Albuterol Nebulized (Conc) [Ventolin Nebulized (Conc)] INHALATION DIRECTED PRN PRN Reason: Dyspnea Discharge Medication List Acetaminophen Tab [Tylenol] 650 mg PO Q4H PRN 04/03/20 [History] Calcium Carb/Magnesium Hydrox [Rolaids Chewable Tablet] 1 each PO DIRECTED PRN 04/03/20 [History] Cyanocobalamin (Vitamin B-12) [Vitamin B-12] 1,000 mcg PO DAILY 04/03/20 [History] Ibuprofen [Motrin Ib] 200 mg PO Q6H PRN 04/03/20 [History] Levothyroxine Sodium [Synthroid] 88 mcg PO DAILY 04/03/20 [History] Loperamide [Imodium] 2 mg PO QID PRN 04/03/20 [History] Multivitamins, Thera [Multivitamin (formulary)] 1 tab PO DAILY 04/03/20 [History] Omeprazole Magnesium [PriLOSEC OTC] 20 mg PO BID PRN 04/03/20 [History] diphenhydrAMINE [Benadryl] 12.5 mg PO BID PRN 04/03/20 [History] Albuterol Nebulized (Conc) [Ventolin Nebulized (Conc)] INHALATION DIRECTED PRN 04/08/20 [History] HYDROcodone/APAP 5-325MG [[place] 5] 1 each PO Q6HR PRN #28 tab 04/11/20 [Rx] Follow up Appointment(s)/Referral(s): Hay Shah, ALBERTO [[employer]] - 2 Weeks (Patient may follow-up with Hay Shah PA-C or Dr. Wyatt Baron at [facility] in 2-3 weeks following discharge. ) Patient Instructions/Handouts: *Surgery [facility] - Scopalamine Patch Instructions Activity/Diet/Wound Care/Special Instructions: 1. Patient may shower with Optifoam dressing intact. 2. Patient may remove Optifoam dressing in 3 days and shower without a dressing at that time. 3. Patient should refrain from driving until at least after their first follow- up appointment in the office. 4. Patient should avoid excessive bending, twisting, and lifting; no lifting greater than 10 pounds 5. Take medications as prescribed 6. Do not soak in tub Discharge Disposition: HOME SELF-CARE
--- NOTE | 2020-04-12 00:10 | P.PN ---
Progress Note - Text Progress Note Date: 04/11/20 - Chief Complaint Lumbar surgery History of presenting complaint: This is a pleasant 59-year-old patient of Dr. Boateng. Chronic stable medical conditions include asthma, GERD, irritable bowel syndrome, lactose intolerance, kidney stones, anxiety, osteoarthritis. Patient's had chronic low back pain progressive over years. Has continued to get worse. Failed conservative management. Pain radiates down the leg. Patient underwent laminectomy decompression of L4-L5 area. And discectomy. Postprocedure laying in bed. Pain is controlled. No nausea vomiting. Patient has no underlying bowel or urine symptoms. Pugh catheter. Today-doing much better. Pain is better controlled. Oral intake improved. Feeling better. Ambulating better. Review of systems: Was done for constitutional, cardiovascular, GI, pulmonary. relevant finding as above Physical examination: VITAL SIGNS: 98.5, 84, 18, 123/82, 98% room air GENERAL: Sitting up in a chair, comfortable EYES: Pupils equal. Conjunctiva normal. NECK: JVD not raised; masses not palpable. HEART: First and second heart sounds are normal; no edema. LUNGS: Respiratory rate normal; clear to auscultation. ABDOMEN: Soft, nontender, liver spleen not palpable, no masses palpable. PSYCH: Alert and oriented x3; mood and affect normal Muscular skeletal: Dressing over the surgical site. INVESTIGATIONS, reviewed in the clinical context: White count 10.6 hemoglobin 12.7 Previous testing White count 11.2 hemoglobin 12.8 potassium 4.7 creatinine 0.7 From March 26 11/07/2019: White count 7.5 hemoglobin 15.7 platelets 254 potassium 4.4 creatinine 0.65 Assessment: -L4-L5 spondylolisthesis, DJD, spinal stenosis at L4-L5 with lower extremity radiculopathy followed by laminectomy decompression and discectomy and placement of interbody graft. -Intermittent asthma -GERD -Irritable bowel syndrome -Chronic lactose intolerance -Anxiety not otherwise specified -Primary osteoarthritis -Hypothyroid Plan: Doing better. Care was discussed with the patient. Follow-up with family doctor. Thank you Dr. Baron
== END 2020-04-11 11:36 | disposition home or self-care (01) | DRG 455 ==
LOC: OR 07:44 → 6NMEDSUR 12:31 → OR 04-09 06:01 → 3NCARDOBS 04-10 11:18 → OBSVTOIN 04-10 13:14
PROVIDERS: ADMIT Orthopaedic Surgery Orthopaedic Surgery of the Spine; ATTEND Orthopaedic Surgery Orthopaedic Surgery of the Spine
PROC: 0SG00AJ Fusion of Lumbar Vertebral Joint with Interbody Fusion Device, Posterior Approach, Anterior Column, Open Approach (ICD-10-PCS; principal; 2020-04-08 09:00)
PROC: 8E0WXBZ Computer Assisted Procedure of Trunk Region (ICD-10-PCS; principal; 2020-04-08 09:00)
PROC: 0SG0071 Fusion of Lumbar Vertebral Joint with Autologous Tissue Substitute, Posterior Approach, Posterior Column, Open Approach (ICD-10-PCS; principal; 2020-04-08 09:00)
PROC: 4A11X4G Monitoring of Peripheral Nervous Electrical Activity, Intraoperative, External Approach (ICD-10-PCS; principal; 2020-04-08 09:00)
PROC: 0ST20ZZ Resection of Lumbar Vertebral Disc, Open Approach (ICD-10-PCS; principal; 2020-04-08 09:00)
PROC: 01NB0ZZ Release Lumbar Nerve, Open Approach (ICD-10-PCS; principal; 2020-04-08 09:00)
DX: M43.16 Spondylolisthesis, lumbar region (principal); M48.062 Spinal stenosis, lumbar region with neurogenic claudication; M51.16 Intervertebral disc disorders with radiculopathy, lumbar region; E03.9 Hypothyroidism, unspecified; E73.9 Lactose intolerance, unspecified; F41.9 Anxiety disorder, unspecified; G89.29 Other chronic pain; I10 Essential (primary) hypertension; J45.20 Mild intermittent asthma, uncomplicated; K21.9 Gastro-esophageal reflux disease without esophagitis; K58.0 Irritable bowel syndrome with diarrhea; M19.91 Primary osteoarthritis, unspecified site; J30.2 Other seasonal allergic rhinitis; M10.9 Gout, unspecified; R01.1 Cardiac murmur, unspecified; M79.7 Fibromyalgia; F32.9 Major depressive disorder, single episode, unspecified; R26.81 Unsteadiness on feet; Z79.890 Hormone replacement therapy; Z79.899 Other long term (current) drug therapy; Z88.1 Allergy status to other antibiotic agents; Z91.041 Radiographic dye allergy status; Z88.5 Allergy status to narcotic agent; Z88.2 Allergy status to sulfonamides; Z88.8 Allergy status to other drugs, medicaments and biological substances; Z91.048 Other nonmedicinal substance allergy status; Z87.442 Personal history of urinary calculi; Z90.710 Acquired absence of both cervix and uterus; Z87.19 Personal history of other diseases of the digestive system; Z87.39 Personal history of other diseases of the musculoskeletal system and connective tissue; Z90.49 Acquired absence of other specified parts of digestive tract; Z98.890 Other specified postprocedural states; Z83.3 Family history of diabetes mellitus; Z82.49 Family history of ischemic heart disease and other diseases of the circulatory system; Z80.0 Family history of malignant neoplasm of digestive organs
CPT/HCPCS: 72100; 80048; 85025; 86850; 86900; 86901

== ENCOUNTER 2023-12-08 09:26 | Day surgery (SDC) | payer MEDICARE, BC ==
[2023-12-06 13:23] VITALS: BMI 34.0
--- NOTE | 2023-12-07 21:05 | P.GSHP ---
History of Present Illness H&P Date: 12/07/23 63 yo female with catarina who comes for a transobturator tape with cysto. She has had a progresssive history of incontinence associated with activity, lifting, coughing and sneezing. On exam she has a hypermobile urethra. She was given treatment options and comes for the tot.The risks and complications including infection, pain . erosion, injury to adjacent organ, failure retention among others have been explained understood and accepted - Constitutional Constitutional: Denies chills, Denies fever - EENT Eyes: denies blurred vision, denies pain Ears, nose, mouth and throat: Denies headache, Denies sore throat - Cardiovascular Cardiovascular: Denies chest pain, Denies shortness of breath - Respiratory Respiratory: Denies cough, Denies 7 - Gastrointestinal Gastrointestinal: Denies abdominal pain, Denies diarrhea, Denies nausea, Denies vomiting - Genitourinary (Female) Genitourinary: Denies dysuria, Denies hematuria - Genitourinary (Male) Genitourinary: Denies dysuria, Denies hematuria - Musculoskeletal Musculoskeletal: Denies myalgias - Integumentary Integumentary: Denies pruritus, Denies rash - Neurological Neurological: Denies numbness, Denies weakness - Psychiatric Psychiatric: Denies anxiety, Denies depression - Endocrine Endocrine: Denies fatigue, Denies weight change Past Medical History Past Medical History: Asthma, Fibromyalgia, GERD/Reflux, Musculoskeletal Disorder, Osteoarthritis (OA), Thyroid Disorder Additional Past Medical History / Comment(s): IBS, frequent diarrhea, seasonal allergies, lactose intolerance, hypoglycemia, hx. heart murmur, anemia, kidney stones, past hx. elevated liver enzymes, gout, back pain that goes down both inner & outer on right leg, blanca pain on inner legs-worse on right History of Any Multi-Drug Resistant Organisms: None Reported Past Surgical History: Back Surgery, Cholecystectomy, Hysterectomy, Orthopedic Surgery, Uterine Ablation Additional Past Surgical History / Comment(s): right rotator cuff repair December, blanca CTS, D & C's, epidural pain procedures, lamincectomy, injection rt knee Past Anesthesia/Blood Transfusion Reactions: Motion Sickness, Postoperative Nausea & Vomiting (PONV) Additional Past Anesthesia/Blood Transfusion Reaction / Comment(s): wakes up w/headaches after anesthesia, no problem w/blood transfusion in past Smoking Status: Never smoker - Past Family History Father Family Medical History: Cancer Additional Family Medical History / Comment(s): pancreatic Sister(s) Family Medical History: Cancer Medications and Allergies Home Medications Medication Instructions Recorded Confirmed Type Loperamide [Imodium] 2 mg PO QID PRN 04/03/20 12/06/23 History Omeprazole Magnesium [PriLOSEC OTC] 20 mg PO BID PRN 04/03/20 12/06/23 History diphenhydrAMINE [Benadryl] 12.5 mg PO BID PRN 04/03/20 12/06/23 History Albuterol Nebulized (Conc) 1 dose INHALATION DIRECTED PRN 04/08/20 12/06/23 History [Ventolin Nebulized (Conc)] Acetaminophen [Tylenol Extra 500 mg PO Q8H PRN 12/06/23 12/06/23 History Strength] Levothyroxine Sodium [Synthroid] 112 mcg PO DAILY 12/06/23 12/06/23 History Allergies Allergy/AdvReac Type Severity Reaction Status Date / Time povidone-iodine Allergy Rash/Hives Verified 12/06/23 13:09 [From Betadine] soap [From Betadine] Allergy Rash/Hives Verified 12/06/23 13:09 morphine AdvReac Nausea & Verified 12/06/23 13:09 Vomiting Sulfa (Sulfonamide AdvReac GI Verified 12/06/23 13:09 Antibiotics) upset,diarrhea narcotics AdvReac IBS flare Uncoded 12/06/23 13:09 up steroids AdvReac headaches,GI Uncoded 12/06/23 13:09 upset Surgical - Exam - General well developed, well nourished, no distress - Eyes normal ocular movement, no icteric - ENT no hearing loss, no congestion - Neck no masses, trachea midline - Respiratory normal respiratory effort, clear to auscultation - Abdomen Abdomen: soft, non tender, no guarding, no rigid, no rebound - Genitourinary hypermobile urethra with catarina. small cystocoele - Integumentary no rash, no abnormal pigmentation - Neurologic no disoriented, no combative - Psychiatric oriented to time, oriented to person, oriented to place, speech is normal, memory intact Assessment and Plan Assessment: Impression: catarina Plan Cysto with tot
[~2023-12-08 09:26] MED LIST changes: +GENTAMICIN 100 MG in SODIUM CHLORIDE 0.9% 100 ML IVPB PRN; -LIDOCAINE 1% (10MG/ML) FOR IV START INTRADERMA PRN; -ONDANSETRON 4 MG/2 ML VIAL IVP ONE; -ceFAZolin 1,000 MG in SODIUM CHLORIDE 0.9% IRRIGATIO 1,000 ML IRRIGATION ONE; -fentaNYL (PF) 50 MCG/ML 2 ML AMP IV PRN
[2023-12-08] MEDS: IV FLUID CONTINUATION 1,000 ML IV ONE (09:53)
[2023-12-08 10:05] LABS: Glucose,Whole Blood 103 mg/dL (70-110)
[2023-12-08] MEDS: LACTATED RINGERS 1,000 ML IV SCH (10:05)
[2023-12-08] MEDS: ONDANSETRON 4 MG/2 ML VIAL IVP ONE (10:08)
[2023-12-08] MEDS: DEXAMETHASONE SOD PHOSPHATE 4 MG/ML 1 ML VIAL IV ONE (10:09)
[2023-12-08] MEDS ORDERED: MIDAZOLAM 2 MG/2 ML VIAL ONE (12:30)
[2023-12-08] MEDS ORDERED: fentaNYL (PF) 50 MCG/ML 2 ML AMP ONE (12:30)
[2023-12-08] MEDS ORDERED: PROPOFOL 10 MG/ML 20 ML VIAL IV ONE (12:30)
[2023-12-08] MEDS ORDERED: PHENYLEPHRINE-0.9% NACL SYG 1,000 MCG/10 ML SYRINGE ONE (12:30)
[2023-12-08] MEDS ORDERED: LIDOCAINE 1% INJ 10MG/ML (20 ML MDV) ONE (12:30)
[2023-12-08] MEDS: AMPICILLIN 1,000 MG in SODIUM CHLORIDE 0.9% 50 ML IVPB PRN (12:33)
[2023-12-08] MEDS ORDERED: ALBUTEROL NEBULIZED 2.5 MG/3 ML INHALATION PRN (12:41)
[2023-12-08] MEDS ORDERED: ONDANSETRON 4 MG/2 ML VIAL IVP PRN (12:42)
[2023-12-08] MEDS: BACITRACIN ZINC 500 UNIT/GM OINT 28.4 GM TUBE TOPICAL ONE (12:57)
[2023-12-08] MEDS: GENTAMICIN 80 MG in SODIUM CHLORIDE 0.9% 500 ML 500 ML IRRIGATION ONE (13:00)
[2023-12-08] MEDS: VASOPRESSIN 20 UNIT/ML 1 ML VIAL SQ ONE (13:02)
[2023-12-08] MEDS: fentaNYL (PF) 50 MCG/ML 2 ML AMP IV PRN (13:33)
--- NOTE | 2023-12-08 14:23 | P.OP ---
Date of Procedure: 12/08/23 Preoperative Diagnosis: Stress urinary incontinence, possible genital warts Postoperative Diagnosis: Same Procedure(s) Performed: Excision of genital lesion, trans-obturator tape with cystoscopy Anesthesia: ROBERTA Surgeon: Magno Villalba Estimated Blood Loss (ml): 25 Pathology: other (Biopsy of congenital lesion) Condition: stable Disposition: PACU Indications for Procedure: Patient is 63. She comes for a trans-obturator tape for her stress incontinence. She states that she has some new lesions in her on blood that she thinks are genital warts I will inspect them and excise and if indicated. Description of Procedure: Patient brought operating suite. Given general anesthesia. Placed lithotomy position with a sterile prep and drape. The labia are sewn laterally with 2-0 silk. I inspect the labia minora and there are couple of shooting lesions. There is also some whiteness. I'm uncertain as to whether this is lichen sclerosus or genital warts. I did an excisional biopsy of one of the "papillary lesions" I cauterized the 2 other ones. Pugh catheters introduced sterilely. A vaginal speculum was introduced. Anterior vaginal mucosa was elevated off the submucosa with 10 mL of a 20 g of Pitressin and 200 mL saline solution. A midline incision is made. I dissect lateral the bladder neck bilaterally. I then make 2 incisions at the level of the inguinal crease bilaterally. I passed introducers through the obturator foramen into the vaginal space bilaterally. I then performed cystoscopy to make sure there is no evidence of bladder injury or urethral injury and there is none. The Pugh catheter introduced. Then attached the trans-obturator tape to the introducers and pull the graft back through the inguinal incisions bilaterally. The graft lay in the mid urethra nicely. The redundant achieving is removed. Vaginal mucosa was closed with 2-0 Vicryl. The redundant tape at the inguinal incisions excised in the inguinal incisions are closed with 4-0 Vicryl. A vaginal packing is placed. The urine remains clear. The patient is awakened and returned recovery in good condition. Observe the hospital postoperatively. Blood loss is minimal
[2023-12-08] MEDS: KETOROLAC 15 MG/ML 1 ML VIAL IVP PRN (16:55)
[2023-12-08] MEDS: PANTOPRAZOLE 40 MG TABLET PO PRN (22:25)
[2023-12-09] MEDS: LEVOTHYROXINE 112 MCG TAB PO SCH (06:50)
[2023-12-09] MEDS: ACETAMINOPHEN TAB 500 MG TAB PO PRN (07:48)
[2023-12-09 08:57] VITALS: BP 133/82; PULSE 72; RESP 18; TEMP 98.9
[2023-12-09] MEDS ORDERED: LEVOTHYROXINE 112 MCG TAB PO SCH (09:00)
--- NOTE | 2023-12-09 11:07 | P.DS ---
Providers Attending physician: Magno Villalba Primary care physician: [facility] Course: The patient was admitted on 12/08/23. SHe underwent a tot with cysto, vulvar biopsies. SHe did well post op THe cath has been removed and she is voiding well without problems. SHe has minimal pain. SHe will fu in thee office in 2 weeks Post op instructions have been given Patient Condition at Discharge: Good Plan - Discharge Summary Discharge Rx Participant: No New Discharge Prescriptions: No Action RX: diphenhydrAMINE [Benadryl] 12.5 mg PO BID PRN PRN Reason: allergies RX: Loperamide [Imodium] 2 mg PO QID PRN PRN Reason: Diarrhea RX: Omeprazole Magnesium [PriLOSEC OTC] 20 mg PO BID PRN PRN Reason: Heartburn RX: Albuterol Nebulized (Conc) [Ventolin Nebulized (Conc)] 1 dose INHALATION DIRECTED PRN PRN Reason: Dyspnea Levothyroxine Sodium [Synthroid] 112 mcg PO DAILY Acetaminophen [Tylenol Extra Strength] 500 mg PO Q8H PRN PRN Reason: Pain Discharge Medication List RX: Loperamide [Imodium] 2 mg PO QID PRN 04/03/20 [History] RX: Omeprazole Magnesium [PriLOSEC OTC] 20 mg PO BID PRN 04/03/20 [History] RX: diphenhydrAMINE [Benadryl] 12.5 mg PO BID PRN 04/03/20 [History] RX: Albuterol Nebulized (Conc) [Ventolin Nebulized (Conc)] 1 dose INHALATION DIRECTED PRN 04/08/20 [History] Acetaminophen [Tylenol Extra Strength] 500 mg PO Q8H PRN 12/06/23 [History] Levothyroxine Sodium [Synthroid] 112 mcg PO DAILY 12/06/23 [History] Follow up Appointment(s)/Referral(s): Magno Villalba MD [STAFF PHYSICIAN] - 2 Weeks Patient Instructions/Handouts: Urinary Bladder Suspension (DC) Discharge Disposition: HOME SELF-CARE
== END 2023-12-09 11:34 | disposition home or self-care (01) ==
LOC: OR 09:26 → 4FBP 13:10 → OR 12-09 11:34
PROVIDERS: ATTEND Urology
DX: N39.3 Stress incontinence (female) (male) (principal); J45.909 Unspecified asthma, uncomplicated; K21.9 Gastro-esophageal reflux disease without esophagitis; K58.9 Irritable bowel syndrome, unspecified; M19.90 Unspecified osteoarthritis, unspecified site; M79.7 Fibromyalgia; Z79.890 Hormone replacement therapy; Z88.1 Allergy status to other antibiotic agents; Z88.2 Allergy status to sulfonamides; Z88.5 Allergy status to narcotic agent; Z88.8 Allergy status to other drugs, medicaments and biological substances; Z91.041 Radiographic dye allergy status; Z87.442 Personal history of urinary calculi; Z90.49 Acquired absence of other specified parts of digestive tract; Z90.710 Acquired absence of both cervix and uterus
CPT/HCPCS: 57288; 88305; C1771; J2250; J1580; J2405; J2001; J3010; J0290; J1885; J2704; J2371